=== PATIENT | male | born 1960 | race Caucasian/White ===

== ENCOUNTER 2021-01-17 15:20 | Outpatient (RCR) | payer OTHER, SELFPAY ==
[2021-01-17] MEDS: COVID-19 VACC, MRNA(PFIZER)/PF 30 MCG/0.3 ML SYRINGE IM (12:32)
[2021-02-07] MEDS: COVID-19 VACC, MRNA(PFIZER)/PF 30 MCG/0.3 ML SYRINGE IM (12:10)
== END 2021-04-11 23:59 ==
LOC: IMMUN 15:20
PROVIDERS: Visit Provider Family Medicine
DX: Z23 Encounter for immunization (principal)
CPT/HCPCS: 0001A; 0002A; 91300